=== PATIENT | male | born 1990 | race Caucasian/White ===

== ENCOUNTER 2017-10-15 13:53 | Emergency (ER) | payer OTHER ==
[~2017-10-15] VITALS: Ht 182.9 cm; Wt 102.0 kg
[2017-10-15 13:58] VITALS: Ht 182.9 cm; Wt 102.0 kg
[2017-10-15 15:55] VITALS: BP 125/71
== END 2017-10-15 15:55 | disposition home or self-care (01) ==
LOC: ED 13:53
DX: M54.5 Low back pain (principal)
CPT/HCPCS: J1885; J2270; Q0162